=== PATIENT | male | born 1975 | race Caucasian/White ===

== ENCOUNTER → 2019-08-24 | Outpatient (CLI) | payer OTHER ==
--- NOTE | 2019-08-25 07:37 | REP ---
SINUSES, COMPLETE: 08/24/2019. Clinical history: Chronic sinusitis. Findings: There were no prior studies. Four views were utilized. Septum is very gently deviated towards the left. The maxillary sinuses show no mucosal thickening or air-fluid levels in any of their pascual. Ethmoid and frontal sinuses appeared clear. Sphenoid sinuses on the lateral and SMV views were normal. Visualized mandible and nasal bones, orbital struts and floors, medial orbital pascual were all intact. Mastoids symmetric and unremarkable. Impression: 1. Negative sinus series for mucosal thickening, air fluid levels or any other significant finding. There is subtle deviation of the nasal septum towards the left. Electronically Signed by Pranav Melendez MD 08/25/2019 07:46 A
== END ==
LOC: M WUC 15:33
PROVIDERS: ATTEND Physician Assistant
DX: J34.2 Deviated nasal septum (principal); J32.9 Chronic sinusitis, unspecified

== ENCOUNTER → 2019-10-07 | Outpatient (CLI) | payer OTHER ==
--- NOTE | 2019-10-07 17:01 | REP ---
Maxillofacial CT study without contrast: History: Chronic maxillary sinusitis. Comparison sinus radiographs are from August 24, 2019. No comparison CT study. CT findings: Frontal sinuses are clear. There is opacification of one of the anterior ethmoid air cells on the left. Minimal mucosal thickening is seen in one of the posterior ethmoid air cells on the left. Sphenoid sinuses are clear. There is a subcentimeter mucosal retention cyst along the medial wall of the right maxillary sinus. There is mild mucosal thickening in the inferior aspect of each maxillary sinus. Mastoid aeration is normal and symmetric. Bony nasal septum deviates somewhat to the left anteriorly with minimal beaking. Nasal turbinate soft tissues are symmetric. No nasal polyp is appreciated. The ostiomeatal complexes are not well seen. The right appears to be patent except for some ostial mucosal thickening. The left appears to be obscured by mucosal thickening. Impression: Bilateral maxillary sinus mucosal changes. Mild left ethmoid sinus mucosal changes. Mucosal thickening is believed to occlude the left ostiomeatal complex. There are aerated tomasa bullosa bilaterally. Electronically Signed by Cresencio Hobson MD 10/08/2019 01:13 P
== END ==
LOC: M RAD 15:52
PROVIDERS: ATTEND Otolaryngology
DX: J32.0 Chronic maxillary sinusitis (principal)

== ENCOUNTER → 2025-02-05 | Outpatient (REF) | payer OTHER | LOC: M LAB REF 11:44 | PROVIDERS: ATTEND Internal Medicine | DX: E03.9 Hypothyroidism, unspecified (principal) ==